=== PATIENT | female | born 1990 | race American Indian/Alaskan Native ===

== ENCOUNTER 2016-10-09 13:38 | Emergency (ER) | payer SELFPAY ==
--- NOTE | 2016-10-09 17:49 | Emergency Department Report ---
ED ENT HPI - General Chief complaint: Sore Throat Stated complaint: SWOLLEN THYROID/NOREEN Time Seen by Provider: 10/09/16 17:15 Source: patient Mode of arrival: Ambulatory Limitations: No Limitations - History of Present Illness Initial comments: Patient states she has noticed that her thyroid has been getting larger over time since her doctor first noticed it on physical exam 1 year ago; she denies having any work up or follow up for it; states she started having a sensation of swelling over her neck/throat over the last few days; denies any sore throat , pain with swallowing, trouble breathing or swallowing and SOB; denies recent noticeable weight loss or gain, but admits she has been noticing that over the past year though -: year(s) (1) Associated Symptoms: denies: fever, cough, pain with swallowing, sore throat - Related Data Previous Rx's Medication Instructions Recorded Last Taken Type Ibuprofen [Motrin] 400 mg PO Q8H PRN #20 tablet 10/09/16 Unknown Rx Allergies Allergy/AdvReac Type Severity Reaction Status Date / Time No Known Allergies Allergy Unverified 10/09/16 14:37 ED Dental HPI - General Chief complaint: Sore Throat Stated complaint: SWOLLEN THYROID/NOREEN Time Seen by Provider: 10/09/16 17:15 Source: patient Mode of arrival: Ambulatory Limitations: No Limitations - Related Data Previous Rx's Medication Instructions Recorded Last Taken Type Ibuprofen [Motrin] 400 mg PO Q8H PRN #20 tablet 10/09/16 Unknown Rx Allergies Allergy/AdvReac Type Severity Reaction Status Date / Time No Known Allergies Allergy Unverified 10/09/16 14:37 ED Review of Systems ROS: Stated complaint: SWOLLEN THYROID/NOREEN Other details as noted in HPI Constitutional: denies: chills, diaphoresis, fever ENT: denies: throat pain Respiratory: denies: cough, shortness of breath Cardiovascular: denies: chest pain Endocrine: unexplained weight gain, unexplained weight loss. denies: excessive sweating, flushing, intolerance to cold, intolerance to heat, increased hunger, increased thirst, increased urine Gastrointestinal: denies: abdominal pain, nausea, vomiting Musculoskeletal: denies: back pain Neurological: denies: headache ED Past Medical Hx - Past Medical History Previous Medical History?: No - Surgical History Additional Surgical History: X 2 - Social History Smoking Status: Never Smoker Substance Use Type: Alcohol - Medications Home Medications: Home Medications Medication Instructions Recorded Confirmed Last Taken Type Ibuprofen [Motrin] 400 mg PO Q8H PRN #20 tablet 10/09/16 Unknown Rx ED Physical Exam - General Limitations: No Limitations General appearance: alert, in no apparent distress - Head Head exam: Present: atraumatic, normocephalic, normal inspection - Eye Eye exam: Present: normal appearance, PERRL, EOMI Pupils: Present: normal accommodation - ENT ENT exam: Present: normal orophraynx, mucous membranes moist - Neck Neck exam: Present: full ROM, thyromegaly (left sided thyromegaly, nontender). Absent: tenderness, lymphadenopathy - Respiratory Respiratory exam: Present: normal lung sounds bilaterally. Absent: respiratory distress, wheezes, rales, rhonchi, stridor - Cardiovascular Cardiovascular Exam: Present: regular rate, normal rhythm, normal heart sounds - Back Exam Back exam: Present: normal inspection, full ROM - Neurological Exam Neurological exam: Present: alert, oriented X3, normal gait - Psychiatric Psychiatric exam: Present: normal affect, normal mood - Skin Skin exam: Present: warm, dry, intact, normal color. Absent: rash ED Course Vital Signs 10/09/16 14:40 Temperature 98.6 F Pulse Rate 70 Respiratory 17 Rate Blood Pressure 127/63 O2 Sat by Pulse 100 Oximetry ED Medical Decision Making - Medical Decision Making Discussed patient with Dr. Gutierrez, he was OK with outpatient follow up since she is not c/o any acute thyroid-related sxs; discussed with patient, she opted for outpatient setting for bloodwork, told her she will need US also, gave her referral for PCP and told her to follow up, she verbalized understanding Critical care attestation.: If time is entered above; I have spent that time in minutes in the direct care of this critically ill patient, excluding procedure time. ED Disposition Clinical Impression: Thyromegaly Disposition: DISCHARGED TO HOME OR SELFCARE Is pt being admited?: No Does the pt Need Aspirin: No Condition: Stable Instructions: Thyroid Goiter (ED) Prescriptions: Ibuprofen [Motrin] 400 mg PO Q8H PRN #20 tablet PRN Reason: Pain Referrals: PRIMARY CARE, [Primary Care Provider] - 3-5 Days Time of Disposition: 17:53 Print Language: TRISTANIAN
[2016-10-09 18:04] VITALS: BP 127/77
== END 2016-10-09 18:05 | disposition home or self-care (01) ==
LOC: ED 13:38
DX: E01.0 Iodine-deficiency related diffuse (endemic) goiter (principal)
CPT/HCPCS: 99282